=== PATIENT | male | born 1995 | race Hispanic/Latino ===

== ENCOUNTER 2017-01-24 21:19 | Emergency (ER) | payer SELFPAY ==
[2017-01-24 21:45] VITALS: BP 123/69; PULSE 79; RESP 16; TEMP 98.7; O2SAT 100
--- NOTE | 2017-01-24 22:37 | ED PDOC ---
Upper Extremity Pain/Injury Time Seen by Provider: 01/24/17 22:05 Chief Complaint (Nursing): Finger,Hand,&Wrist Chief Complaint (Provider): left hand 5th digit injury History Per: Patient History/Exam Limitations: no limitations Onset/Duration Of Symptoms: Hrs (2) Current Symptoms Are (Timing): Still Present Severity: Mild Hands/Wrist (Pic): 1 - Tenderness, Swelling, Pain Worse W/Movement Additional History Per: Patient Additional Complaint(s): 21 y/o male presents with pain to left hand 5th digit x 2 hours. Patient states he was playing volleyball and pinky got hit by the ball during a block. DEnies numbness/weakness left upper extremity, limitation of movement. Ibuprofen 400mg taken20:30. Past Medical History Reviewed: Historical Data, Nursing Documentation, Vital Signs Vital Signs: Last Vital Signs Temp 98.7 F 01/24/17 21:43 Pulse 79 01/24/17 21:43 Resp 16 01/24/17 21:43 BP 123/69 01/24/17 21:43 Pulse Ox 100 01/24/17 21:43 - Medical History PMH: No Chronic Diseases - Surgical History Surgical History: No Surg Hx - Family History Family History: States: Unknown Family Hx - Home Medications Home Medications: Ambulatory Orders Medication Instructions Recorded Ibuprofen [Motrin Tab] 1 tab PO Q6 PRN #20 tab 01/24/17 - Allergies Allergies/Adverse Reactions: Allergies Allergy/AdvReac Type Severity Reaction Status Date / Time No Known Allergies Allergy Verified 01/24/17 21:43 Review of Systems ROS Statement: Except As Marked, All Systems Reviewed And Found Negative Musculoskeletal: Positive for: Hand Pain (left hand 5th digit) Physical Exam - Reviewed Nursing Documentation Reviewed: Yes Vital Signs Reviewed: Yes - Physical Exam Appears: Positive for: Well, Non-toxic, No Acute Distress Head Exam: Positive for: ATRAUMATIC, NORMAL INSPECTION, NORMOCEPHALIC Pulses-Radial (L): 2+ Pulses-Radial (R): 2+ Extremity: Positive for: Normal ROM, Tenderness (left hand 5th digit PIP, DIP with + swelling; limited ROM due to pain. Distal NV intact b/l) Neurologic/Psych: Positive for: Alert, Oriented. Negative for: Motor/Sensory Deficits - ECG O2 Sat by Pulse Oximetry: 100 - Other Rad left hand 5th digit xray X-Ray: Viewed By Me X-Ray Interpretation: +PIP dislocation - Progress ED Course And Treament: xray, ibuprofen Verbal consent given by patient for reduction of left hand 5th digit finger dislocation. Finger successfully reduced. Patient placed in finger splint; advised follow up hand specialist. Rx ibuprofen given. Advised ice. Return to ED for worsening/concerning symptoms. Disposition - Clinical Impression Clinical Impression: Finger dislocation - Patient ED Disposition Is Patient to be Admitted: No Counseled Patient/Family Regarding: Studies Performed, Diagnosis, Need For Followup, Rx Given - Disposition Referrals: Shai Eli MD [Medical Doctor] - Disposition: Routine/Home Disposition Time: 23:38 Condition: IMPROVED Additional Instructions: Call hand specialist to schedule follow up appointment. Take Ibuprofen as directed, as needed. Ice affected area. Return to ED for worsening/concerning symptoms. Prescriptions: Ibuprofen [Motrin Tab] 1 tab PO Q6 PRN #20 tab PRN Reason: Pain, Moderate (4-7) Instructions: Finger Dislocation (ED)
--- NOTE | 2017-01-25 10:50 | RAD ---
PROCEDURE: Left small finger radiographs. HISTORY: injury, pain/swelling COMPARISON: None. TECHNIQUE: AP radiograph of the left hand, as well as spot oblique and lateral images of left small finger were obtained. FINDINGS: LEFT SMALL FINGER: No acute fracture. Dorsal dislocation at 5th PIP. Remainder of the left hand (as seen on the AP view) is grossly unremarkable. JOINTS: Dorsal dislocation at 5th PIP. SOFT TISSUES: Normal. OTHER FINDINGS: None. IMPRESSION: Dorsal dislocation 5th IP without evidence of associated fracture.
--- NOTE | 2017-01-25 10:51 | RAD ---
PROCEDURE: Left small finger radiographs. HISTORY: post-reduction COMPARISON: None. TECHNIQUE: AP radiograph of the left hand, as well as spot oblique and lateral images of left small finger were obtained. FINDINGS: LEFT SMALL FINGER: Status post close reduction 5th PIP dislocation. No evidence of fracture. Remaining joint spaces and articular surfaces are preserved. Remainder of the left hand (as seen on the AP view) is grossly unremarkable. JOINTS: Normal. SOFT TISSUES: Normal. OTHER FINDINGS: None. IMPRESSION: Successful close reduction 5th PIP dislocation.
== END 2017-01-25 00:03 | disposition home or self-care (01) ==
LOC: H.ER 21:19
DX: S63.207A Unspecified subluxation of left little finger, initial encounter (principal); X50.9XXA Other and unspecified overexertion or strenuous movements or postures, initial encounter; Y92.322 Soccer field as the place of occurrence of the external cause

== ENCOUNTER 2018-12-19 07:05 | Emergency (ER) | payer BC ==
[2018-12-19 07:17] VITALS: BP 120/74; PULSE 80; RESP 19; TEMP 98; O2SAT 100
--- NOTE | 2018-12-19 07:35 | ED PDOC ---
HPI: CCC, URI, Sore Throat Chief Complaint (Nursing): ENT Problem Chief Complaint (Provider): ENT Problem History Per: Patient History/Exam Limitations: no limitations Onset/Duration Of Symptoms: Hrs (@ 2am) Current Symptoms Are (Timing): Still Present Additional Complaint(s): Margarito Goetz is a 23 year old male with no past medical history, who presents to the emergency department complaining of right sided throat pain, onset at 2am today. Patient further states that he has pain every time he swallows. He denies having any fever or cough and further denies taking any medication prior to arrival. Patient is a [employer] student and has no other medical complaints. PMD: In [place] Past Medical History Reviewed: Historical Data, Nursing Documentation, Vital Signs Vital Signs: Last Vital Signs Temp 98.0 F 12/19/18 07:15 Pulse 80 12/19/18 07:15 Resp 19 12/19/18 07:15 BP 120/74 12/19/18 07:15 Pulse Ox 100 12/19/18 07:15 - Medical History PMH: No Chronic Diseases - Surgical History Surgical History: No Surg Hx - Family History Family History: States: Unknown Family Hx - Home Medications Home Medications: Ambulatory Orders Medication Instructions Recorded RX: Ibuprofen [Motrin Tab] 1 tab PO Q6 PRN #20 tab 01/24/17 Azithromycin [Zithromax] 500 mg PO DAILY #3 tab 12/19/18 Ibuprofen [Motrin] 600 mg PO Q6H PRN #20 tab 12/19/18 - Allergies Allergies/Adverse Reactions: Allergies Allergy/AdvReac Type Severity Reaction Status Date / Time No Known Allergies Allergy Verified 01/24/17 21:43 Review of Systems ROS Statement: Except As Marked, All Systems Reviewed And Found Negative Constitutional: Negative for: Fever ENT: Positive for: Throat Pain Respiratory: Negative for: Cough Physical Exam - Reviewed Nursing Documentation Reviewed: Yes Vital Signs Reviewed: Yes - Physical Exam Appears: Positive for: Non-toxic, No Acute Distress Head Exam: Positive for: ATRAUMATIC, NORMOCEPHALIC Skin: Positive for: Normal Color, Warm, Dry Eye Exam: Positive for: Normal appearance, EOMI, PERRL ENT: Positive for: Pharyngeal Erythema (minimal), Other ((+) uvula midline; (+) lymphadenopathy in right cervical area; (-) drooling). Negative for: Tonsillar Exudate, Tonsillar Swelling Cardiovascular/Chest: Positive for: Regular Rate, Rhythm. Negative for: Murmur Respiratory: Positive for: Normal Breath Sounds (clear to auscultation bilaterally ). Negative for: Respiratory Distress Gastrointestinal/Abdominal: Positive for: Normal Exam, Soft. Negative for: Tenderness Back: Positive for: Normal Inspection. Negative for: L CVA Tenderness, R CVA Tenderness, Vertebral Tenderness Extremity: Positive for: Normal ROM. Negative for: Pedal Edema, Deformity Neurologic/Psych: Positive for: Alert, Oriented. Negative for: Motor/Sensory Deficits - ECG O2 Sat by Pulse Oximetry: 100 (RA) Pulse Ox Interpretation: Normal Medical Decision Making Medical Decision Making: Time: 726 Impression: sore throat Plan: --Motrin tab 600 mg PO --Rapid strep group A antigen Time: 818 --Strep test came back negative. --Patient given a prescription for Zithromax, but instructed to fill it if he develops a fever or if symptoms do not subside within x3 days. Scribe Attestation: Documented by Nuno Tanner, acting as a scribe for Rosalva Oneill MD. Provider Scribe Attestation: All medical record entries made by the Scribe were at my direction and personally dictated by me. I have reviewed the chart and agree that the record accurately reflects my personal performance of the history, physical exam, medical decision making, and the department course for this patient. I have also personally directed, reviewed, and agree with the discharge instructions and disposition. Disposition - Clinical Impression Clinical Impression: Pharyngitis - Disposition Disposition Time: 08:19 Condition: STABLE Additional Instructions: FOLLOW-UP WITH [facility] WITHIN 2 DAYS FOR REEVALUATION. Prescriptions: Azithromycin [Zithromax] 500 mg PO DAILY #3 tab Ibuprofen [Motrin] 600 mg PO Q6H PRN #20 tab PRN Reason: Pain, Moderate (4-7) Instructions: Sore Throat in Adults Forms: [facility] ([facility])
== END 2018-12-19 09:04 | disposition home or self-care (01) ==
LOC: H.ER 07:05
DX: J02.9 Acute pharyngitis, unspecified (principal)